=== PATIENT | male | born 1945 | race Caucasian/White ===

== ENCOUNTER 2018-10-13 09:22 | Outpatient (CLI) | payer OTHER | END 2018-10-13 17:00 | disposition home or self-care (01) | LOC: MRI 09:22 | DX: M51.24 Other intervertebral disc displacement, thoracic region (principal); M50.20 Other cervical disc displacement, unspecified cervical region; M47.895 Other spondylosis, thoracolumbar region | CPT/HCPCS: 72141; 72146 ==